=== PATIENT | male | born 1980 | race Caucasian/White ===

== ENCOUNTER 2020-01-01 14:17 | Emergency (ER) | payer BC, SELFPAY ==
[2020-01-01 14:18] VITALS: BP 134/70; PULSE 75; RESP 16; TEMP 36.9; O2SAT 98; BMI 29.9
[2020-01-01] MEDS: Diphth,Pertuss(Acell),Tet Vac 0.5 ML Vial IM (16:43)
--- NOTE | 2020-01-01 17:28 | ED.DCSUM_ITS ---
- ER Visit Summary Date of Service: 01/01/20 Chief Complaint: Laceration History of Present Illness: The patient is a [address] Aguilera. He is right-hand dominant. He is unsure when his last tetanus shot was. He cut his left index finger with a utility knife. Reports he has a throbbing pain is 10 of 10 at worst and is pain-free currently. Is worsened by movement relieved by rest. Denies any paresthesias distally. Physical Examination: Vitals: Stable. Afebrile. General: Well-nourished and well-developed. Head: Normocephalic atraumatic. Neck: Supple, no lymphadenopathy. No JVD. Nontender. Cardiovascular: Regular rate and rhythm. No murmurs. Respiratory: No respiratory distress. Clear to auscultation bilaterally. Abdominal: Soft, nontender, nondistended, normal bowel sounds. No guarding, rebound, or peritoneal signs. Back: Nontender. Extremities: Left index finger has a 1.5 cm laceration over the medial portion of the proximal phalanx. He is neuro vas intact distal to this. Normal sensation to light touch. He is got normal flexion of the PIP and DIP joints against resistance., no edema. Skin: Normal color, no rash. Neurologic: Alert and oriented ?3. Cranial nerves II through XII are intact. Normal strength and sensation. Psych: Normal affect. Emergency Department Course and Treatment: Patient had his tetanus updated. He had his wound anesthetized and repaired. He tolerated this well. Treatment Plan: Patient be discharged instructions to follow-up his primary care physician in 10 to 14 days for suture removal. Return to the emergency department for any worsening symptoms. Disposition: To home in improved and stable condition. Impression: 1. Laceration left middle finger, 1.5 cm, repaired. Procedure note: Wound was cleansed with chlorhexidine soap. Anesthetized with 1% lidocaine without epinephrine. Copiously irrigated with normal saline. Wound was explored there is no foreign material present. It was closed with 4 simple interrupted 4- 0 ethilon sutures. The patient tolerated it well. This note was generated with [employer] dictation software. It may contain incorrect words, spelling, and punctuation that were not noted in review of the chart prior to signing ED Disposition - Plan for ED Patient: Disposition: Home or Assisted Living Instructions: LACERATION, Extrem (Suture, Staple or Tape) Referrals: Griffin Gerardo MD [Primary Care Provider] - 10-14 Days suture removal
== END 2020-01-01 17:36 | disposition home or self-care (01) ==
LOC: ED 15:56
PROVIDERS: Emergency Provider Emergency Medicine; PCP Family Medicine
DX: S61.211A Laceration without foreign body of left index finger without damage to nail, initial encounter (principal); Z23 Encounter for immunization; W26.0XXA Contact with knife, initial encounter; Y93.89 Activity, other specified; Y92.89 Other specified places as the place of occurrence of the external cause; Y99.8 Other external cause status
CPT/HCPCS: 12001; 90715; 99283